=== PATIENT | male | born 2005 | race Hispanic/Latino ===

== ENCOUNTER 2023-11-03 13:21 | Outpatient (CLI) | payer BC ==
[2023-11-03] MEDS ORDERED: Sincalide 5 MCG VIAL ONE (14:42)
[2023-11-03] MEDS ORDERED: Sterile Water 10 ML ONE (14:44)
[2023-11-03] MEDS ORDERED: Bacteriostatic Normal Saline 30 ML VIAL ONE (14:45)
== END 2023-11-03 13:22 | disposition home or self-care (01) ==
LOC: NM 13:21
PROVIDERS: ATTEND Family Medicine
DX: R10.9 Unspecified abdominal pain (principal); R11.0 Nausea; E03.8 Other specified hypothyroidism; E34.8 Other specified endocrine disorders; R94.6 Abnormal results of thyroid function studies
CPT/HCPCS: 78227; A9537